=== PATIENT | male | born 1955 | race African-American/Black ===

== ENCOUNTER 2024-02-28 13:34 | Emergency (ER) | payer BC ==
[~2024-02-28] VITALS: Ht 182.9 cm; Wt 107.0 kg
[2024-02-28 13:53] VITALS: O2SAT 99
[2024-02-28] MEDS ORDERED: ONDANSETRON 4MG ODT PO ONE (15:45)
[2024-02-28] MEDS ORDERED: ACETAMINOPHEN 650MG/20.3ML UDC PO ONE (15:45)
[2024-02-28] MEDS ORDERED: KETOROLAC 30MG/ML VIAL IM ONE (15:45)
[2024-02-28] MEDS: ACETAMINOPHEN 650MG/20.3ML UDC PO NR (18:00)
[2024-02-28] MEDS: ONDANSETRON 4MG ODT PO NR (18:00)
[2024-02-28] MEDS: KETOROLAC 30MG/ML VIAL IM NR (18:00)
[2024-02-28 18:11] LABS: BASOPHILS % 1.1 % (0.0-2.0); EOSINOPHILS % 2.4 % (0.0-5.0); HEMATOCRIT. 35.9 % (42.0-52.0); HEMOGLOBIN. 11.8 g/dL (14.0-18.0); LYMPHOCYTES % 39.2 % (20.0-50.0); MEAN CORPUSCULAR HEMOGLOBIN 29.1 pg (28.0-32.0); MEAN CORPUSCULAR HGB CONC 32.7 g/dL (31.0-37.0); MEAN CORPUSCULAR VOLUME 88.8 fL (80.0-94.0); MEAN PLATELET VOLUME 8.4 fl (7.4-10.4); MONOCYTES % 9.1 % (2.0-8.0); NEUTROPHILS % 48.2 % (40.0-76.0); PLATELET 255 x1000/uL (130-400); RED BLOOD CELL COUNT 4.04 mill/uL (4.7-6.1); RED CELL DISTRIBUTION WIDTH 16.1 % (11.6-14.6); WHITE BLOOD COUNT 6.7 x1000/uL (4.5-11.0)
[2024-02-28 18:15] LABS: CHLORIDE 110 mEq/L (98-107); POTASSIUM 4.7 mEq/L (3.5-5.1); SODIUM 141 mEq/L (136-145)
[2024-02-28 18:16] LABS: CARBON DIOXIDE 27 mEq/L (21-32)
[2024-02-28 18:17] LABS: CALCIUM 9.7 mg/dL (8.7-10.4)
[2024-02-28 18:21] LABS: GLUCOSE 74 mg/dL (70-105); UREA NITROGEN BLOOD 9 mg/dL (9-23)
[2024-02-28] MEDS ORDERED: ONDA-239 PO (18:26)
[2024-02-28 18:32] VITALS: BP 134/69; PULSE 68; RESP 18; TEMP 37.11408; O2SAT 99
== END 2024-02-28 18:32 | disposition home or self-care (01) ==
LOC: ER 13:55
DX: S06.0XAA Concussion with loss of consciousness status unknown, initial encounter (principal); X58.XXXA Exposure to other specified factors, initial encounter; Y93.89 Activity, other specified; Y92.89 Other specified places as the place of occurrence of the external cause; Y99.8 Other external cause status
CPT/HCPCS: 99285; 70450; 80048; 85025; 36415; 96372; Q0162; J1885